=== PATIENT | female | born 1960 | race American Indian/Alaskan Native ===

== ENCOUNTER 2016-12-11 12:56 | Emergency (ER) | payer BC ==
--- NOTE | 2016-12-11 13:47 | XRay Report ---
Portable chest: There is a large mass occupying the superior mediastinum and extending over the left hilum. The aortic arch is partially distinguishable. The heart is normal in size. The lung periphery is relatively clear bilaterally except for mild haziness in the left midlung adjacent to the hilar portion of the mass. Impression: Mediastinal mass/masses. Considerations would include aortic aneurysm/dissection and other mediastinal masses. Recommendation: Contrast enhanced CT scan.
[2016-12-11] MEDS ORDERED: NORMODYNE IV ONE (13:51)
--- NOTE | 2016-12-11 13:54 | Emergency Department Report ---
HPI - General Chief Complaint: Dyspnea/Respdistress Time Seen by Provider: 12/11/16 13:41 - HPI HPI: Room 22 The patient is a 56-year-old female presenting with a chief complaint of shortness of breath. The patient states she has had a constant shortness of breath for the past 2-3 days. Patient admits to cough that is occasionally productive of dark and light sputum. Patient admits to subjective fever. Patient denies chest pain or back pain. Location: Lungs Duration: [see above] Quality: [see above] Severity: [see above] Modifying factors: [see above] Context: [see above] Mode of transportation: [not driving] ED Past Medical Hx - Past Medical History Previous Medical History?: No - Surgical History Past Surgical History?: Yes Additional Surgical History: hysterectomy - Family History Family history: no significant - Social History Smoking Status: Never Smoker Substance Use Type: None (denies illicit drug use) ED Review of Systems ROS: Stated complaint: EDOUARD Other details as noted in HPI Comment: All other systems reviewed and negative Constitutional: diaphoresis. denies: chills, fever Eyes: denies: eye pain, eye discharge, vision change ENT: denies: ear pain, throat pain Respiratory: shortness of breath Cardiovascular: denies: chest pain Endocrine: no symptoms reported Gastrointestinal: denies: abdominal pain, nausea, diarrhea Genitourinary: denies: urgency, dysuria, discharge Musculoskeletal: denies: back pain, joint swelling, arthralgia Skin: denies: rash, lesions Neurological: denies: headache, weakness, paresthesias Psychiatric: denies: anxiety, depression Hematological/Lymphatic: denies: easy bleeding, easy bruising Physical Exam - Physical Exam Vital Signs: Vital Signs 12/11/16 13:07 Temperature 97.5 F L Pulse Rate 120 H Blood Pressure 161/115 O2 Sat by Pulse 98 Oximetry Physical Exam: GENERAL: The patient is well-developed well-nourished female sitting on stretcher appearing to have mildly labored respirations. [] HEENT: Normocephalic. Atraumatic. Extraocular motions are intact. Patient has moist mucous membranes. NECK: Supple. Trachea midline CHEST/LUNGS: Clear to auscultation. There is mild respiratory distress noted. HEART/CARDIOVASCULAR: Regular. There is tachycardia. There is no gallop rub or murmur. ABDOMEN: Abdomen is soft, nontender. Patient has normal bowel sounds. There is no abdominal distention. SKIN: There is no rash. There is no edema. There is no diaphoresis. NEURO: The patient is awake, alert, and oriented. The patient is cooperative. The patient has normal speech MUSCULOSKELETAL: There is no evidence of acute injury. ED Course Vital Signs 12/11/16 13:07 Temperature 97.5 F L Pulse Rate 120 H Blood Pressure 161/115 O2 Sat by Pulse 98 Oximetry - Consultations Consultation #1: 12/11/16 14:01 Informed by nursing that there is a backorder of labetalol. Medication changed to metoprolol 5 mg IV Consultation #2: 12/11/16 16:15 Pulmonology paged 12/11/16 16:39 Dr. Blanco made aware of potential need to transfer patient given lack of chemotherapy at [facility] Consultation #3: 12/11/16 16:18 Hematology paged 12/11/16 16:[address] 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 Subsequently chemotherapy is not performed at [facility] and she recommends transfer to another facility [facility] transfer line called 12/11/16 18:05 Case discussed with hospitalist at [facility] Dr. Pablo. Will discuss case with [facility] oncologist sole conforming machine operator to see if they will accept patient in transfer 12/11/16 18:40 [facility] transfer line called-state they're not able to transfer patient' s that require senior naval parachutist or demo event specialist 12/11/16 18:49 [facility] transfer line called 12/11/16 18:55 Case discussed with transfer center. They recommended contacting the bone marrow transplant center at [place] to discuss the case directly at [phone]. Dr. Valerio has been paged and I'm awaiting call back 12/11/16 19:[address] Valerio- states he should be able to have the patient transferred either tonight or tomorrow. Will need to make some telephone calls and obtain the patient's demographic information 12/11/16 20:11 Patient accepted at [facility] ED Medical Decision Making - Lab Data Result diagrams: 12/11/16 13:38 12/11/16 13:38 Laboratory Tests 12/11/16 12/11/16 13:38 13:38 WBC 25.8 H RBC 3.72 Hgb 10.3 Hct 32.1 MCV 86 MCH 28 MCHC 32 RDW 22.4 H Plt Count 116 L Add Manual Diff Complete Total Counted 200 Seg Neutrophils % Animal Herder Seg Neuts % (Manual) 14.5 L Band Neutrophils % 10.5 Lymphocytes % (Manual) 38.0 H Reactive Lymphs % (Man) 22.5 Monocytes % (Manual) 5.5 Eosinophils % (Manual) 0 Basophils % (Manual) 0 Metamyelocytes % 1.5 Myelocytes % 0.5 Promyelocytes % 4.0 Blast Cells % 3.0 Nucleated RBC % 1.0 H Seg Neutrophils # Man 3.7 Band Neutrophils # 2.7 Lymphocytes # (Manual) 9.8 H Abs React Lymphs (Man) 5.8 Monocytes # (Manual) 1.4 H Eosinophils # (Manual) 0.0 Basophils # (Manual) 0.0 Metamyelocytes # 0.4 Myelocytes # 0.1 Promyelocytes # 1.0 Blast Cells # 0.4 WBC Morphology Not Reportable Hypersegmented Neuts Not Reportable Hyposegmented Neuts Not Reportable Hypogranular Neuts Not Reportable Smudge Cells 1+ Toxic Granulation Not Reportable Toxic Vacuolation Not Reportable Dohle Bodies Not Reportable Pelger-Huet Anomaly Not Reportable Gabe Rods Not Reportable Platelet Estimate Appears decreased Clumped Platelets Not Reportable Plt Clumps, EDTA Not Reportable Large Platelets Not Reportable Giant Platelets Not Reportable Platelet Satelliting Not Reportable Plt Morphology Comment Not Reportable RBC Morphology Not Reportable Dimorphic RBCs Not Reportable Polychromasia 1+ Hypochromasia Not Reportable Poikilocytosis 1+ Anisocytosis 1+ Microcytosis Not Reportable Macrocytosis Not Reportable Spherocytes Not Reportable Pappenheimer Bodies Not Reportable Sickle Cells Not Reportable Target Cells Not Reportable Tear Drop Cells Few Ovalocytes 1+ Helmet Cells Not Reportable Horowitz-[place] Bodies Not Reportable [place] Rings Not Reportable Towner Cells Not Reportable Bite Cells Not Reportable Crenated Cell Not Reportable Elliptocytes Few Acanthocytes (Spur) Not Reportable Rouleaux Not Reportable Hemoglobin C Crystals Not Reportable Schistocytes Rare Malaria parasites Not Reportable All Bodies Not Reportable Hem Pathologist Commnt Sent to pathology Sodium 141 Potassium 4.1 Chloride 99.7 Carbon Dioxide 23 Anion Gap 22 BUN 25 H Creatinine 0.8 Estimated GFR > 60 BUN/Creatinine Ratio 31.25 Glucose 101 H Calcium 10.2 Troponin T < 0.010 - Radiology Data Radiology results: report reviewed (CT chest), image reviewed (chest x-ray, CT chest) interpreted by me: Chest [id number] mediastinum CT chest (read by radiologist))-large extensive abnormal soft tissue lymph node masses in the chest and included upper abdomen primarily concerning for lymphoma nolan Gibbons. Left lung pneumonia, small bilateral pleural effusions, pericardial effusion, mild right hydronephrosis and there is other findings including mediastinal vessels and airway encasement and mild effacement. - Differential Diagnosis aortic dissection, aortic aneurysm, PE, mediastinal mass Critical care attestation.: If time is entered above; I have spent that time in minutes in the direct care of this critically ill patient, excluding procedure time. ED Disposition Clinical Impression: Shortness of breath, Mediastinal mass, Leukocytosis, Pneumonia Disposition: [place]/[facility] Is pt being admited?: No Does the pt Need Aspirin: No Condition: Serious Instructions: Bacterial Pneumonia (ED) Referrals: PRIMARY CARE, [Primary Care Provider] - 3-5 Days Time of Disposition: 20:12 (awaiting transport)
[2016-12-11] MEDS ORDERED: LOPRESSOR IV ONE (14:00)
[2016-12-11 14:06] LABS: Hematocrit 32.1 % (30.3-42.9); Hemoglobin 10.3 gm/dl (10.1-14.3); Mean Corpuscular HGB Conc 32 % (30-34); Mean Corpuscular Hemoglobin 28 pg (28-32); Mean Corpuscular Volume 86 fl (79-97); Platelet Count 116 K/mm3 (140-440); Red Blood Count 3.72 M/mm3 (3.65-5.03)
[2016-12-11 14:08] LABS: Red Cell Distribution Width 22.4 % (13.2-15.2); White Blood Count 25.8 K/mm3 (4.5-11.0)
[2016-12-11 14:11] LABS: Anion Gap 22 mmol/L; BUN/Creatinine Ratio 31.25; Blood Urea Nitrogen 25 mg/dL (7-17); Calcium 10.2 mg/dL (8.4-10.2); Carbon Dioxide 23 mmol/L (22-30); Chloride 99.7 mmol/L (98-107); Glucose 101 mg/dL (65-100); Potassium 4.1 mmol/L (3.6-5.0); Sodium 141 mmol/L (137-145)
--- NOTE | 2016-12-11 14:11 | Admit Criteria Form ---
Admission Criteria Documentation: PULMONARY DISEASE GRG Clinical Indications for Admission to Inpatient Care ( Place 'X' for any and all applicable criteria): Hospital admission is needed for appropriate care of the patient because of ANY ONE of the following(1): [ ]I. Impending or actual respiratory arrest ( Use Respiratory Failure Criteria for severe respiratory disease and long-term mechanical ventilation patients) (4) [ ]II. Severe airflow or ventilation abnormalities (not responsive to emergency and observation care treatment as appropriate) as indicated by ANY ONE of the following(5)(6)(7)(8) : [ ]a) PCO2 > 42 mm Hg (5.6 kPa) and pH < 7.35 (new) [ ]b) Documented PCO2 increase > 5 mm Hg (0.7 kPa) from disease baseline [ ]c) Airflow measurements[A] < 60% of previous best or predicted ( e.g., PEF <300 L/minute) despite intensive emergent treatment[B] [ ]d) Required respiratory treatments that are performable only in acute inpatient setting [ ]III. Severe respiratory findings (not responsive to emergency and observation care treatment as appropriate) including ANY ONE of the following(5)(8)(9): [ ]a) Respiratory distress as indicated by ALL of the following(5)(10): [ ]i) Patient with ANY ONE of the following: [ ]1) Dyspnea (difficulty breathing) [ ]2) Abnormal breathing pattern (eg, chest retractions) [ ]3) Tachypnea [ ]4) Other evidence of difficulty breathing [ ]ii) Evidence of respiratory compromise indicated by ANY ONE of the following: [ ]1) Hypoxemia [ ]2) Altered mental status [ ]3) Other evidence of respiratory compromise (eg, pulmonary edema on chest x-ray) [ ]b) Stridor [ ]c) Gross hemoptysis(11) [ ]d) Acute cyanosis [ ]IV. High-risk pulmonary infection as indicated by ANY ONE of the following( 19)(20)(21)(22): [ ]a) Temperature less than 95 degrees F(35 degrees C) or greater than 103.1 degrees F(39.5 degrees C) [ ]b) Hemodynamic instability that remains after emergency or observation level care (as appropriate) [ ]c) Immunocompromised patient (eg, AIDS, post transplant, neutropenic) [ ]d) History of severe COPD [ ]e) History of severely symptomatic congestive heart failure [ ]f) Other high-risk comorbidity (eg, poorly controlled diabetes, cirrhosis, chronic renal insufficiency) [ ]g) Hypoxemia (new) [ ]h) Outpatient, observation, or recovery facility therapy has failed, is not appropriate, or is not feasible [ ]V. Severe atelectasis or lung collapse(15)(16) [ ]. Tuberculosis requiring inpatient treatment as indicated by ANY ONE of the following(17)(18): [ ]a) New positive acid-fast bacilli sputum smear [ ]b) Positive acid-fast bacilli smear (under current treatment), with ANY ONE of the following: [ ]i) Unexposed household contacts [ ]ii) Infants or immunosuppressed household contacts [ ]iii) Patient unable or unwilling to avoid exposing others [ ]iv) Severe immunocompromised patient (eg, AIDS, post transplant, neutropenic) [ ]VII. Empyema or lung abscess(13)(14) [ ]VIII. Severe pulmonary arterial hypertension or pulmonary vascular disease requiring inpatient care indicated by ANY ONE of the following(24)(25): [ ]a) Initiation or change of vasodilators (IV, subcutaneous, or inhaled) or other vasoactive medications needed [ ]b) IV anticoagulation needed (eg, immediate anticoagulation necessary, alternatives not appropriate) [ ]c) Arterial or pulmonary artery catheter monitoring needed due to infusion or other treatment [ ]IX. Chronic lung disease with severe deterioration (not responsive to emergency and observation care treatment as appropriate) as indicated by ANY ONE of the following (6)(12): [ ]a) SaO2 5% below baseline in patient with chronic hypoxemia [ ]b) New requirement for supplemental oxygen to keep SaO2 at baseline or acceptable level [ ]c) Required supplemental oxygen performable only in acute inpatient setting [ ]d) Severe airflow or ventilation abnormalities [ ]e) Rapid rate of exacerbation onset [ ]f) Previously mobile patient unable to walk between rooms [ ]g) Inability to eat or sleep due to dyspnea [ ]h) Altered mental status [ ]X. Cystic fibrosis with severe deterioration as indicated by ANY ONE of the following(26)(27): [ ]a) Severe exacerbation that does not respond to intensified home therapy [ ]b) Pneumonia [ ]c) Hemoptysis [ ]d) Atelectasis [ ]e) Pneumothorax [ ]f) Respiratory failure [ ]g) Severe exacerbation with patient unable to perform prescribed treatments at home [ ]XI. Severe right heart failure as indicated by ANY ONE of the following(24) (25): [ ]a) Increasing organ failure (eg, liver congestion with significant and worsening or new elevation of transaminases) [ ]b) Anasarca [ ]c) Angina that requires inpatient care (eg, not treatable in emergency or observation level of care) [ ]d) Respiratory distress [ ]e) Syncope [ ]f) SBP < 90 mm Hg (new) [ ]XII. Injury requiring inpatient care (medical) as indicated by ANY ONE of the following(28): [ ]a) Significant inhalation injury (eg, smoke inhalation, other toxic inhalation) (29)(30)(31) [ ]b) Airway obstruction that remains or is unstable after emergency or observation level care(32) [ ]c) Severe pain requiring acute inpatient management [ ]d) Lung contusion [ ]e) Bronchial tree injury [ ]f) Air or fat emboli(33) [ ]g) Other injury not treatable in emergency or observation level care (eg, hemothorax) (34) [ ]XIII. Pulmonary hemorrhage or significant hemoptysis(11)(35)(36) [ ]XIV. Inpatient palliative care needed[C](37)(38)(39)(40) [ ]XV. Complications of lung transplant (eg, rejection, failure, respiratory infection) (23) [X ]XVI. Pulmonary Disease and ANY ONE of the following: [X ]a) General Admission Criteria [ ]b) Pediatric General Admission Criteria The original [facility] content created by [facility] has been revised. The portions of the content which have been revised are identified through the use of italic text or in bold, and [facility] has neither reviewed nor approved the modified material. All other unmodified content is copyright [facility]. Please see references footnoted in the original [facility] edition 2016
[2016-12-11 15:16] LABS: Basophils % (Manual) 0 % (0.0-1.8); Eosinophils % (Manual) 0 % (0.0-4.3); Total Cells Counted Percent 29.5
[2016-12-11 15:17] LABS: Anisocytosis 1+; Elliptocytes Few; Ovalocytes 1+; Platelet Estimate Appears Decreased; Poikilocytosis 1+; Polychromasia 1+; Smudge Cells 1+; Tear Drop Cells Few
[2016-12-11 15:18] LABS: Diff Status Complete; Schistocytes Rare
--- NOTE | 2016-12-11 15:54 | Cat Scan Report ---
CTA CHEST INDICATION: Abnormal mediastinum, shortness of breath. COMPARISON: None similar at this institution. FINDINGS: Chest CTA performed following intravenous administration of 100 cc of Omnipaque 350. Rotational MIP's also obtained. Overall normal heart size, though slightly exaggerated due to moderate pericardial effusion with greatest thickness of approximately 1.7 cm lateral to the right heart, axial image 166, series 2. Pericardial effusion at the base of the heart also noted. Great vessels and heart also somewhat anteriorly displaced secondary to extensive mediastinal widening due to a large soft tissue mass encasing the great vessels and airway as also extending to both viktoriya and right greater than left paraesophageal/prevertebral. Its maximum dimensions are approximately 13 cm transverse and approximately 9 cm AP, axial image 86, series 2 with craniocaudal extent of approximately 20 cm. Flattening/effacement/narrowing of the right mainstem bronchus also noted as on axial image 119, amongst others. Similar, though lesser changes along the left mainstem bronchus also noted. No aortic aneurysm with grossly unremarkable ascending aorta. Remainder aorta suboptimally opacified. No suspicious pulmonary arterial filling defects. Mild waist/effacement of the right main pulmonary artery noted on axial image 121, series 2. Left brachiocephalic vein medially also effaced/flattened as on axial images 35-68, though remains patent. Numerous bilateral small axillary lymph nodes also noted, though the largest on the left is 2 x 1.1 cm, axial image 61, series 2. Imaged thyroid normal in size, though slightly lobulated and heterogeneous with few small hypodensities as measuring up to 5 mm on the left inferiorly possible, axial image 25, series 2. Mild right middle and bilateral lower lobe atelectasis or scarring. Left upper and lower lobe bronchial narrowing also seen with greatest postobstructive consolidation/infiltrate in inferior aspect of the left upper lobe. Tiny clustered nodular densities in the left lower lobe as on the axial series 2, images 191-200 nonspecific, though may be calcified/old healed granulomatous disease. Similar 4 mm calcification at the extreme right lung base may also be present on axial image 211, series 2. Small pleural effusions, greater than left. Upper abdominal images demonstrate extensive soft tissue masses/lymphadenopathy, greatest retroperitoneal measuring approximately 12 cm transverse x 5.5 cm AP, axial image 259, series 2, somewhat displacing the aorta and renal arteries anteriorly. Extensive mesenteric/gastrohepatic lymph node masses may also measure up to approximately 9.8 x 4.5 cm, axial image 256. Mild right hydronephrosis may be incompletely imaged. Multiple, at least 4 hepatic hypodensities, the largest on the right approximately 1.3 cm, axial image 229 while the largest on the left measures 1 cm, axial image 208, series 2, representing simple cysts. Lower cervical spine degenerative changes. CONCLUSION: 1. Large, extensive abnormal soft tissue lymph node masses in the chest and included upper abdomen, as detailed above, primarily concerning for lymphoma, amongst others. 2. Left lung pneumonia, small bilateral pleural effusions, pericardial effusion, mild right hydronephrosis and various other findings, including mediastinal vessels and airway encasement and mild effacement, amongst others, as described above. Please correlate. Thank you for the opportunity to participate in this patient's care.
[2016-12-11] MEDS: ZOSYN/NS 4.5GM/100ML 4.5 GM/100 ML VIAL IV ONE ×2 (17:18→18:03)
[2016-12-11 17:42] LABS: Uric Acid 10.3 mg/dL (3.5-7.6)
[2016-12-11] MEDS ORDERED: LEVAQUIN 500MG/100ML 500 MG/100 ML BAG IV ONE (17:56)
[2016-12-11 23:37] VITALS: BP 163/106
== END 2016-12-11 23:36 | disposition designated cancer center or children's hospital (05) ==
LOC: ED 12:56
DX: J18.9 Pneumonia, unspecified organism (principal); R22.2 Localized swelling, mass and lump, trunk; D72.829 Elevated white blood cell count, unspecified
CPT/HCPCS: 36415; 71010; 71275; 80048; 82232; 83615; 84484; 84550; 85007; 85025; 85652; 87040; 93005; 93010; 96365; 96375; 99285; J1956; J2543; Q9967

== ENCOUNTER 2017-06-21 15:21 | Emergency (ER) | payer BC, MEDICAID ==
[2017-06-21 16:42] VITALS: BP 130/101
--- NOTE | 2017-06-21 18:11 | Cat Scan Report ---
FINAL REPORT EXAM: CT THORACIC SPINE WO CON HISTORY: back pain TECHNIQUE: Noncontrast serial axial images through the thoracic spine with coronal and sagittal reconstruction. PRIORS: None. FINDINGS: There is a moderate size right pleural effusion. This is incompletely evaluated this study. There atelectasis in the lung bases. Enlarged mediastinal lymph nodes are seen. These are incompletely evaluated. Susan masses measure greater than 7 centimeters. There is a 2 centimeter cyst in the right lobe of the liver. Soft tissue density in the retroperitoneum is noted which may represent adenopathy. This is incompletely evaluated in this study. Vertebral body height is preserved. No acute fracture or anterolisthesis is identified. IMPRESSION: 1. No acute osseous abnormality is identified. 2. Multi station adenopathy. This is incompletely evaluated this study. This could represent lymphoma or other metastatic disease. There are currently no studies available for direct comparison. This can be further assessed with contrast enhanced CT abdomen pelvis and/or PET-CT. Biopsy may ultimately be necessary for diagnosis. 3. Right pleural effusion. 4. Right hepatic cyst. UNF
--- NOTE | 2017-06-21 18:25 | ED Elopement Review ---
ED Pt Elopement review - Call Back decision Pt Call Back Decision: Pt to F/U with PMD (patient should be called and notified CAT scan of her thoracic spine reveals significant multi-gestation adenopathy which should be further evaluated. The radiologist's is concerned that this may represent lymphoma or other metastatic disease. Charge nurse Daphney notified 18:24)
== END 2017-06-22 06:44 | disposition left against medical advice (07) ==
LOC: ED 15:21
DX: M54.9 Dorsalgia, unspecified (principal); Z53.21 Procedure and treatment not carried out due to patient leaving prior to being seen by health care provider
CPT/HCPCS: 72128